=== PATIENT | female | born 1965 | race Caucasian/White ===

== ENCOUNTER 2020-03-16 21:27 | Emergency (ER) | payer BC ==
[~2020-03-16 21:27] MED LIST: Iopamidol 370 76% 100 ML VIAL ONE
[2020-03-16] MEDS ORDERED: Pantoprazole 40 MG VIAL ONE (21:58)
[2020-03-16] MEDS ORDERED: Prochlorperazine 10 MG/2 ML VIAL ONE (21:58)
[2020-03-16] MEDS ORDERED: Sodium Chloride 0.9% 1,000 ML ONE (21:58)
[2020-03-16 22:08] LABS: #Basophils 0.1 thou/uL (0.0-0.2); #Lymphocytes 1.6 thou/uL (1.20-3.40); #Monocytes 0.8 thou/uL (0.11-0.59); %Basophils 0.9 % (0.0-1.0); %Eosinophils 0.2 % (0.0-10.0); %Lymphocytes 13.6 % (21.0-51.0); %Monocytes 6.8 % (0.0-10.0); %Neutrophils 78.5 % (42.0-75.0); Mean Corpuscular HGB CONC 32.1 g/dL (32.0-36.0); Mean Corpuscular Hemoglobin 31.7 pg (27.0-31.0); Mean Corpuscular Volume 98.7 fL (78.0-98.0); Mean Platelet Volume 7.6 fL (7.4-10.4); Platelet Count 253 thou/uL (130-400); RBC Distribution Width 12.3 % (11.5-14.5); Red Blood Cell (RBC) Count 5.04 mill/uL (4.20-5.40); White Blood Cell (WBC) Count 11.5 thou/uL (4.8-10.8)
[2020-03-16 22:24] LABS: ALT (SGPT) 34 U/L (8-55); AST (SGOT) 36 U/L (5-34); Albumin 4.6 g/dL (3.5-5.0); Alkaline Phosphatase 78 U/L (40-110); Anion Gap 24 mmol/L (10-20); BUN (Urea Nitrogen) 18 mg/dL (9.8-20.1); Bilirubin, Total 0.6 mg/dL (0.2-1.2); Calc. Creatinine Clearance 0 mL/min (70-130); Calcium 10.1 mg/dL (7.8-10.44); Carbon Dioxide 19 mmol/L (22-29); Chloride 103 mmol/L (98-107); Estimated GFR-MDRD Greater than 90; Globulin 2.9 g/dL (2.4-3.5); Glucose 118 mg/dL (70-105); Lipase 31 U/L (8-78); Potassium 3.8 mmol/L (3.5-5.1); Protein, Total 7.5 g/dL (6.0-8.3); Sodium 142 mmol/L (136-145)
--- NOTE | 2020-03-16 22:42 | RAD ---
Exam: One view chest 2 views abdomen HISTORY: Severe epigastric pain. Nausea and vomiting. FINDINGS: 1. View chest: Normal cardiac silhouette. Lungs and pleural spaces are clear. No pneumothorax or acut e osseous abnormalities Abdomen 2 views: Prominent loop of small bowel in the left hemiabdomen worrisome for a developing obs tructive process or ileus. There is still evidence of fecal material in the right hemicolon. Air and fecal material is also noted in the sigmoid colon and rectum. IMPRESSION: Developing ileus or obstructive process left hemiabdomen.
--- NOTE | 2020-03-16 23:31 | CT ---
EXAM: CT ABDOMEN AND PELVIS HISTORY: Status post gastric bypass surgery and hysterectomy. Cholecystectomy. Abdominal pain. Evalua te for bowel obstruction. COMPARISON: 06/20/2016 Procedure: Multiple contiguous axial images were obtained and a CT of the abdomen and pelvis with IV contrast. C oronal reformats were performed. FINDINGS: Lower Chest: within normal limits. Vessels: Normal caliber aorta. No periaortic fat stranding Heart: Normal heart size. No significant pericardial fluid. Abdomen: Portal vein:Patent Gallbladder: Surgically absent Liver: within normal limits. Pancreas: within normal limits. Spleen: within normal limits. Adrenals: within normal limits. Kidneys: Symmetric enhancement. No obstructive uropathy. Peritoneum: No free air. Small amount of fluid in both paracolic gutters. Bowel: Limited evaluation by the lack of oral contrast administration. There is fluid in the distal t horacic esophagus. There is evidence of a hiatal hernia. There is bariatric surgical change. There is a markedly distended loop of proximal jejunum. There appears to be abrupt transition in the left u pper quadrant, (coronal image 20 series 301, axial image 36 series 2 and sagittal image 107, series 300). Remaining small bowel loops are decompressed. Colon has residual fecal material but is compress ed. Sigmoid colon diverticulosis, without evidence of diverticulitis. Mesentery and Retroperitoneum: No enlarged mesenteric or retroperitoneal lymph nodes. Abdominal Wall: within normal limits. Pelvis: Reproductive Organs: Uterus is surgically absent. Pelvis: No mass, lymphadenopathy, free air. There is a small amount of free fluid in the pelvis. Flui d. Bladder: within normal limits. Bones: within normal limits. IMPRESSION: High-grade small bowel obstruction with a transition segment the left hemiabdomen.
[2020-03-16] MEDS ORDERED: Fentanyl 100 MCG/2 ML VIAL ONE (23:40)
[2020-03-16] MEDS ORDERED: Lidocaine 1% 20 ML MDV ONE (23:41)
== END 2020-03-17 00:35 | disposition short-term general hospital (02) ==
LOC: MADERS 21:27
DX: K56.609 Unspecified intestinal obstruction, unspecified as to partial versus complete obstruction (principal); E03.9 Hypothyroidism, unspecified; F17.210 Nicotine dependence, cigarettes, uncomplicated; Z79.899 Other long term (current) drug therapy
CPT/HCPCS: 36415; 74022; 74177; 80053; 83605; 83690; 85025; 96361; 96374; 96375; C9113; J0780; J2001; J3010; J7050; Q9967